=== PATIENT | female | born 1950 | race Caucasian/White ===

== ENCOUNTER → 2017-10-30 | Outpatient (CLI) | payer MEDICARE ==
[~2017-10-30] MED LIST: ANORO INH; LORATADINE10 MG PO; PROZAC20 MG PO
--- NOTE | 2017-10-30 13:19 | Diagnostic Imaging Report ---
PROCEDURE: CT CHEST WITHOUT CONTRAST CT scan of the chest WITHOUT intravenous contrast, using standard protocol. TECHNIQUE: The chest was scanned utilizing a multidetector helical scanner from the apex to the level of the adrenal glands. No IV contrast was administered because of referring physician request. Coronal and sagittal multiplanar reformations were obtained. COMPARISON: None. INDICATIONS: short of breath FINDINGS: Lines/tubes: None. Lungs and Airways: Advanced upper lobe predominant emphysematous changes with pulmonary hyperinflation are again noted. Linear fibrotic change laterally within the right lower lobe is also unchanged. Trachea, mainstem bronchi, and visualized lobar and segmental bronchi are patent. 9 mm ovoid nodule along the left major fissure is unchanged in size and may represent an intrapulmonary lymph node. Previously described right lower lobe juxtapleural lobulated nodule with central punctate calcification and broad pleural communication is unchanged in size when accounting for differences in technique, now measuring 1.2 cm craniocaudal by 1.7 cm oblique AP by 1.1 cm oblique transverse (previously 1.3 cm craniocaudal by 1.8 cm oblique AP by 1.1 cm oblique transverse). Pleura: No pleural effusion or pneumothorax. Heart and mediastinum: Visualized portions of the thyroid gland are notable for a hypoattenuating nodule in the right lobe, unchanged. There is atherosclerotic calcification of the aortic arch, great vessel origins, and descending thoracic aorta without ectasia or aneurysmal dilatation. The pulmonary outflow tract is of normal caliber. No pericardial effusion. No axillary, hilar, or mediastinal lymphadenopathy. Soft tissues: The soft tissues are notable for stable bilateral breast implants with peripheral calcifications. Abdomen: Visualized portions of the liver, spleen, pancreas, and adrenals are unremarkable. A large peripherally calcified gallstone is again partially visualized. Bones: No osseous destructive lesions. Multilevel degenerative disc disease and degenerative facet arthropathy of the lower cervical and thoracic spine. IMPRESSION: No appreciable interval change in size of the previously described lobulated centrally calcified right lower lobe nodule, measuring 1.7 cm in maximum dimension, compared to the examination from 04/18/2017. This nodule is likely related to prior infectious or inflammatory process, though followup CT scan of the chest without contrast in 6 months is suggested to assess for stability given presence of extensive background emphysematous changes. 9 mm left fissural nodule likely represents an intrapulmonary lymph node, also stable, may be reassessed at the above recommended [address] chest. Other stable findings include a hypoattenuating nodule in the right lobe of the thyroid, partially visualized cholelithiasis, and atherosclerotic vascular disease. Dictated by: Sha Cabello M.D. on 10/30/2017 at 13:28 Electronically approved by: Sha Cabello M.D. on 10/30/2017 at 13:28
== END ==
LOC: CT 12:33
PROVIDERS: ATTEND Internal Medicine Critical Care Medicine
DX: J44.9 Chronic obstructive pulmonary disease, unspecified (principal); R09.02 Hypoxemia; J30.9 Allergic rhinitis, unspecified; R91.1 Solitary pulmonary nodule; Z72.0 Tobacco use
CPT/HCPCS: 71250